=== PATIENT | male | born 1985 | race Caucasian/White ===

== ENCOUNTER 2018-08-08 22:43 | Emergency (ER) | payer OTHER, BC ==
[~2018-08-08] VITALS: Ht 185.4 cm; Wt 83.9 kg
== END 2018-08-09 03:11 | disposition home or self-care (01) ==
LOC: ER 22:43
DX: S40.012A Contusion of left shoulder, initial encounter (principal); V40.5XXA Car driver injured in collision with pedestrian or animal in traffic accident, initial encounter
CPT/HCPCS: 99283